=== PATIENT | female | born 1975 | race Caucasian/White ===

== ENCOUNTER 2018-05-28 12:06 | Emergency (ER) | payer BC ==
--- NOTE | 2018-05-28 12:16 | EDM.PDOC ---
ED HPI GENERAL MEDICAL PROBLEM - General Chief Complaint: Chest Pain Stated Complaint: CHEST PAIN Time Seen by Provider: 05/28/18 12:13 Source of Information: Reports: Patient, RN Notes Reviewed - History of Present Illness INITIAL COMMENTS - FREE TEXT/NARRATIVE: 42-year-old female that started having mild chest discomfort asked her today, worse last evening and then becoming more severe this morning with radiation to her back. Those as though there is a pressure sensation in her chest, especially with deep breathing. There also is a sharp shooting component that goes into her back. She has not been coughing. No fever or chills. She does feel mildly short of breath with this. No radiation to the shoulder or arm at this time. She is not diabetic and she does not smoke. She states there is strong family history for heart disease in her family. Left Chest Pain Score (Numeric/FACES): 8 - Related Data Allergies Allergy/AdvReac Type Severity Reaction Status Date / Time No Known Allergies Allergy Verified 04/24/15 15:02 Home Meds: Home Meds Zolpidem [Ambien] 10 mg PO BEDTIME PRN 04/24/15 [History] ALPRAZolam [Alprazolam] 0.25 mg PO TID PRN 05/28/18 [History] FLUoxetine HCl [Prozac] 20 mg PO DAILY 05/28/18 [History] LORazepam [Ativan] 0.5 mg PO Q12HR #10 tablet 05/28/18 [Rx] Potassium Chloride 20 meq PO DAILY 05/28/18 [History] buPROPion HCl [Wellbutrin Xl] 150 mg PO DAILY 05/28/18 [History] Past Medical History Other [employer] History: Abnormal pap, with LEEPX3 ED ROS GENERAL - Review of Systems Review Of Systems: See Below Constitutional: Denies: Fever, Chills, Diaphoresis HEENT: Denies: Sinus Problem, Throat Pain Respiratory: Reports: Shortness of Breath (Mild), Pleuritic Chest Pain. Denies : Cough (Mild) Cardiovascular: Reports: Chest Pain GI/Abdominal: Denies: Abdominal Pain (Left anterior chest), Nausea, Vomiting Musculoskeletal: Denies: Neck Pain, Shoulder Pain, Arm Pain Skin: Reports: No Symptoms Neurological: Reports: Numbness (She did have some numbness of the left arm, that is gone) ED EXAM, GENERAL - Physical Exam Exam: See Below General Appearance: Alert, Anxious, Mild Distress Eye Exam: Bilateral Eye: PERRL Throat/Mouth: Normal Inspection Head: Atraumatic Neck: Supple, Full Range of Motion. No: Lymphadenopathy (L), Lymphadenopathy (R ) Respiratory/Chest: No Respiratory Distress, Lungs Clear, Normal Breath Sounds, Chest Non-Tender Cardiovascular: Regular Rate, Rhythm GI/Abdominal: Soft, Non-Tender Back Exam: No: CVA Tenderness (L), CVA Tenderness (R) Extremities: No: Pedal Edema, Leg Pain, Increased Warmth, Redness Neurological: Alert, Oriented, No Motor/Sensory Deficits Skin Exam: Warm, Dry, Normal Color EKG INTERPRETATION EKG Date: 05/28/18 Rhythm: NSR [place]: Normal P-Wave: Present QRS: Normal ST-T: Other (There are T-wave inversions inferior leads and also V3, 4, [address] depression in V3, 4, 5 and 6.) Course - Vital Signs Last Recorded V/S: Last Vital Signs Temp 98.2 F 05/28/18 13:25 Pulse 80 05/28/18 13:25 Resp 10 L 05/28/18 13:25 BP 117/77 05/28/18 13:25 Pulse Ox 99 05/28/18 13:25 - Orders/Labs/Meds Orders: Active Orders 24 hr Category Date Time Status EKG Documentation Completion [RC] ASDIRECTED Care 05/28/18 12:17 Active Peripheral IV Care [RC] . DIRECTED Care 05/28/18 12:31 Active Chest 1V Frontal [CR] Stat Exams 05/28/18 12:30 Taken Peripheral IV Insertion Adult [OM.PC] Stat Oth 05/28/18 12:31 Ordered EKG 12 Lead [EK] Stat Ther 05/28/18 12:17 Ordered Labs: Laboratory Tests 05/28/18 05/28/18 05/28/18 Range/Units 12:17 12:17 12:17 WBC 9.12 (3.98-10.04) K/mm3 RBC 5.27 H (3.98-5.22) M/mm3 Hgb 14.8 (11.2-15.7) gm/L Hct 42.9 (34.1-44.9) % MCV 81.4 (79.4-94.8) fl MCH 28.1 (25.6-32.2) pg MCHC 34.5 (32.2-35.5) g/dl RDW Std Deviation 41.8 (36.4-46.3) fL Plt Count 379 H (182-369) K/mm3 MPV 10.1 (9.4-12.3) fl Neut % (Auto) 68.3 (34.0-71.1) % Lymph % (Auto) 21.6 (19.3-51.7) % [place] % (Auto) 5.4 (4.7-12.5) % Eos % (Auto) 3.1 (0.7-5.8) Baso % (Auto) 1.4 H (0.1-1.2) % Neut # (Auto) 6.23 H (1.56-6.13) K/mm3 Lymph # (Auto) 1.97 (1.18-3.74) K/mm3 [place] # (Auto) 0.49 H (0.24-0.36) K/mm3 Eos # (Auto) 0.28 (0.04-0.36) K/mm3 Baso # (Auto) 0.13 H (0.01-0.08) K/mm3 D-Dimer, Quantitative 0.74 H (0.19-0.50) mg/L Sodium 137 (136-145) mEq/L Potassium 3.4 L (3.5-5.1) mEq/L Chloride 99 (98-107) mEq/L Carbon Dioxide 28 (21-32) mEq/L Anion Gap 13.4 (5-15) BUN 10 (7-18) mg/dL Creatinine 1.4 H (0.55-1.02) mg/dL Est Cr Clr Drug Dosing 47.74 mL/min Estimated GFR (MDRD) 41 (>60) mL/min BUN/Creatinine Ratio 7.1 L (14-18) Glucose 93 (74-106) mg/dL Calcium 9.0 (8.5-10.1) mg/dL Total Bilirubin 0.4 (0.2-1.0) mg/dL AST 22 (15-37) U/L ALT 17 (14-59) U/L Alkaline Phosphatase 51 (46-116) U/L Troponin I < 0.017 (0.00-0.056) ng/mL Total Protein 7.3 (6.4-8.2) g/dl Albumin 3.9 (3.4-5.0) g/dl Globulin 3.4 gm/dL Albumin/Globulin Ratio 1.2 (1-2) Meds: Medications Discontinued Medications Generic Name Dose Route Start Last Admin Trade Name Freq PRN Reason Stop Dose Admin Hydromorphone HCl 0.5 mg 05/28/18 13:17 05/28/18 13:22 Dilaudid IVPUSH 05/28/18 13:18 0.5 mg ONETIME ONE Administration Hydromorphone HCl 0.5 mg 05/28/18 15:36 05/28/18 15:41 Dilaudid IVPUSH 05/28/18 15:37 0.5 mg ONETIME ONE Administration Sodium Chloride 100 mls @ 75 mls/hr 05/28/18 14:00 05/28/18 14:01 Normal Saline IV 75 mls/hr ASDIRECTED SHILOH Administration Iopamidol 100 ml 05/28/18 13:48 05/28/18 14:01 Isovue-370 (76%) IVPUSH 05/28/18 13:49 70 ml ONETIME ONE Administration Lorazepam 0.5 mg 05/28/18 15:36 05/28/18 15:42 Ativan PO 05/28/18 15:37 0.5 mg ONETIME ONE Administration Sodium Chloride 10 ml 05/28/18 12:30 05/28/18 12:35 Saline Flush FLUSH 10 ml ASDIRECTED PRN Administration Keep Vein Open Sodium Chloride 10 ml 05/28/18 13:48 05/28/18 14:01 Saline Flush FLUSH 10 ml ONETIME PRN Administration IV FLUSH - Re-Assessments/Exams Free Text/Narrative Re-Assessment/Exam: 05/28/18 12:32 Patient does have T-wave inversions inferior anterior and lateral leads with some mild ST depression V4 5 and 6. When I suggested giving aspirin she states she can "cannot have anti-inflammatories" because "her kidneys are weak". We'll hold off on aspirin for now. 05/28/18 13:35. D-dimer did come back mildly elevated. Her pain became worse requiring IV Dilaudid to obtain at least some relief. His anxiety level also noted to be quite high. Based on all of that CT pulmonary angiogram has been ordered. 16:40. CT pulmonary angiogram was normal. Troponin also was normal as well as other labs. Chest x-ray did look good. Discharge instructions as documented. Departure - Departure Time of Disposition: 16:36 Disposition: Home, Self-Care 01 Condition: Fair Clinical Impression: Atypical chest pain, Pleurisy Prescriptions: LORazepam [Ativan] 0.5 mg PO Q12HR #10 tablet Instructions: Pleurisy, [id number] Referrals: Hanny Chilel PA-C [Primary Care Provider] - Forms: ED Department Discharge Additional Instructions: Ativan 0.5 mg twice daily for muscle and nerve relaxation, Tylenol 2-3 times daily for discomfort. You may also alternate ice and heat as needed for further chest or back discomfort. The symptoms of discomfort should gradually resolve over the next 2-4 days. Follow-up with your regular medical provider early next week for recheck, call [phone] for appointment. Return to ED as needed if symptoms worsening in any way. - My Orders Last 24 Hours: My Active Orders 05/28/18 12:17 EKG Documentation Completion [RC] ASDIRECTED EKG 12 Lead [EK] Stat 05/28/18 12:30 Chest 1V Frontal [CR] Stat 05/28/18 12:31 Peripheral IV Care [RC] . DIRECTED Peripheral IV Insertion Adult [OM.PC] Stat - Assessment/Plan Last 24 Hours: My Active Orders 05/28/18 12:17 EKG Documentation Completion [RC] ASDIRECTED EKG 12 Lead [EK] Stat 05/28/18 12:30 Chest 1V Frontal [CR] Stat 18 12:31 Peripheral IV Care [RC] . DIRECTED Peripheral IV Insertion Adult [OM.PC] Stat
[2018-05-28] MEDS ORDERED: Sodium Chloride 0.9% 10 ML Syringe FLUSH PRN ×2 (12:30→13:48)
[2018-05-28] MEDS ORDERED: HYDROmorphone 0.5 MG/0.5 ML SYRINGE IVPUSH ONE ×2 (13:17→15:36)
[2018-05-28 13:27] VITALS: BP 117/77
[2018-05-28] MEDS ORDERED: Iopamidol 755 Mg/ML 100 ML Bottle IVPUSH ONE (13:48)
[2018-05-28] MEDS ORDERED: Sodium Chloride 0.9% 100 ML IV SCH (14:00)
--- NOTE | 2018-05-28 14:36 | CT ---
CT chest Technique: Multiple axial sections through the chest were obtained. Intravenous contrast was utilized. Study has been performed as a pulmonary angiogram protocol. Findings: Pulmonary arteries are well-opacified. No filling defects are seen to indicate pulmonary embolism. Mediastinum and hilar regions show no adenopathy or mass. No pericardial thickening is seen. Moderately large hiatal hernia is seen. 5 low density lesions are seen within the right and left lobes of the liver. These are felt compatible with incidental cysts. Largest cyst measures approximately 1.2 cm. Other visualized upper abdominal structures are within normal limits. Small pleural-based nodule is seen within the right middle lobe measuring 5 mm which most likely represents scarring. Lungs are clear with no acute parenchymal change. No pleural effusions are seen. Bone window settings were reviewed which shows no discrete osseous abnormality. No hilar adenopathy or mediastinal adenopathy is seen. No axillary adenopathy is seen. Impression: 1. No findings of pulmonary embolism. 2. 5 small cysts within the liver. Moderately large hiatal hernia. 3. Nothing acute is seen on CT study of the chest. Diagnostic code #2
[2018-05-28] MEDS ORDERED: LORazepam 0.5 MG Tab PO ONE (15:36)
--- NOTE | 2018-05-29 09:01 | CR ---
Chest: Portable view of the chest was obtained. Comparison: No prior chest x-ray. Heart size and mediastinum are normal. Lungs are clear. Bony structures are within normal limits. Impression: 1. Nothing acute is seen on portable chest x-ray. Diagnostic code #1
== END 2018-05-28 17:00 | disposition home or self-care (01) ==
LOC: JD.ED 12:06
DX: R07.89 Other chest pain (principal); R09.1 Pleurisy; Z79.899 Other long term (current) drug therapy
CPT/HCPCS: 36415; 71045; 71275; 80053; 84484; 85025; 85379; 93005; 96374; 96376; 99285; A9270; J1170; J7030; J7050; Q9967

== ENCOUNTER 2018-06-17 06:57 | Day surgery (SDC) | payer BC ==
[~2018-06-17 06:57] MED LIST: Lactated Ringers 1,000 ML IV SCH; Lidocaine 1% 4 ML ONE; Lidocaine 1%/Sod Bicarbonate in NS 8.4% 1 ML Syringe IDERM PRN; Propofol 200 MG/20 ML SDV ONE; Sodium Chloride 0.9% 10 ML Syringe FLUSH PRN; fentaNYL 100 MCG/2 ML SDV ONE
--- NOTE | 2018-06-17 08:18 | PCM.PREANE ---
Preanesthetic Assessment - Anesthesia/Transfusion/Family Hx Anesthesia History: Prior Anesthesia Without Reaction Family History of Anesthesia Reaction: No Transfusion History: No Prior Transfusion(s) Intubation History: Unknown - Review of Systems General: No Symptoms, Fatigue Pulmonary: No Symptoms Cardiovascular: No Symptoms Gastrointestinal: No Symptoms (GERD), Abdominal Pain, Constipation Neurological: No Symptoms, Headache (Migraines) Other: Reports: None (STAGE III kidney disease chronic), Easy Bruising, Sinus Problem (seasonal allergies), Depression, Anxiety - Physical Assessment NPO Status Date: 06/16/18 NPO Status Time: 21:00 Pulse: 82 O2 Sat by Pulse Oximetry: 97 Respiratory Rate: 16 Blood Pressure: 100/77 Temperature: 36.4 C Vital Signs: Last Vital Signs Temp 36.4 C 06/17/18 07:19 Pulse 82 06/17/18 07:19 Resp 16 06/17/18 07:19 BP 100/77 06/17/18 07:19 Pulse Ox 97 06/17/18 07:19 Height: 1.73 m Weight: 57.1 kg ASA Class: 2 Mental Status: Alert & Oriented x3 Airway Class: Mallampati = 2 Dentition: Reports: Dentures Thyro-Mental Finger Breadths: 3 Mouth Opening Finger Breadths: 3 ROM/Head Extension: Full Lungs: Clear to Auscultation, Normal Respiratory Effort Cardiovascular: Regular Rate, Regular Rhythm, No Murmurs - Lab Values: Lab values reviewed and noted and within acceptable ranges to proceed with scheduled procedure. - Imaging/EKG Impressions: EKG: SR rate= 75, Twave inversion noted along with ST segment depression V3-V6. CXR: negative Cardiolyte Stess test: negative - Allergies Allergies/Adverse Reactions: Allergies Allergy/AdvReac Type Severity Reaction Status Date / Time No Known Allergies Allergy Verified 06/17/18 08:10 - Anesthesia Plan Pre-Op Medication Ordered: None - Acknowledgements Anesthesia Type Planned: MAC Pt an Appropriate Candidate for the Planned Anesthesia: Yes Alternatives and Risks of Anesthesia Discussed w Pt/Guardian: Yes Pt/Guardian Understands and Agrees with Anesthesia Plan: Yes PreAnesthesia Questionnaire Cardiovascular History: Reports: Heart Murmur Genitourinary History: Reports: Other (See Below) Other Genitourinary History: low functioning kidney Other OB/BYN History: Abnormal pap, with LEEPX3 Psychiatric History: Reports: Anxiety, Depression - HOME MEDS Home Medications: Home Meds Zolpidem [Ambien] 10 mg PO BEDTIME PRN 04/24/15 [History] ALPRAZolam [Alprazolam] 0.25 mg PO TID PRN 05/28/18 [History] FLUoxetine HCl [Prozac] 20 mg PO DAILY 05/28/18 [History] LORazepam [Ativan] 0.5 mg PO Q12HR #10 tablet 05/28/18 [Rx] Potassium Chloride 20 meq PO DAILY 05/28/18 [History] buPROPion HCl [Wellbutrin Xl] 150 mg PO DAILY 05/28/18 [History] - CURRENT (IN HOUSE) MEDS Current Meds: Current Medications Lactated Ringer's (Ringers, Lactated) 1,000 mls @ 125 mls/hr IV ASDIRECTED SHILOH Stop: 06/17/18 23:00 Lidocaine/Sodium Bicarbonate (Buffered Lidocaine 1% In Ns 8.4%) 0.25 ml IDERM ONETIME PRN PRN Reason: Prior to IV Start Stop: 06/17/18 18:00 Sodium Chloride (Saline Flush) 10 ml FLUSH ASDIRECTED PRN PRN Reason: Keep Vein Open Stop: 06/17/18 18:00 Discontinued Medications Fentanyl (Sublimaze) Confirm Administered Dose 100 mcg .ROUTE .STK-MED ONE Stop: 06/17/18 06:53 Lidocaine HCl (Xylocaine-Mpf 1%) Confirm Administered Dose 4 mls @ as directed .ROUTE .STK-MED ONE Stop: 06/17/18 06:53 Propofol (Diprivan 20 Ml) Confirm Administered Dose 200 mg .ROUTE .STK-MED ONE Stop: 06/17/18 06:53
[2018-06-17] MEDS ORDERED: Lactated Ringers 1,000 ML ONE (09:15)
--- NOTE | 2018-06-17 09:58 | PCM48HPAN ---
Post Anesthesia Note - EVALUATION WITHIN 48HRS OF ANESTHETIC Vital Signs in Normal Range: Yes Patient Participated in Evaluation: Yes Respiratory Function Stable: Yes Airway Patent: Yes Cardiovascular Function Stable: Yes Hydration Status Stable: Yes Pain Control Satisfactory: Yes Nausea and Vomiting Control Satisfactory: Yes Mental Status Recovered: Yes Pulse Rate: 82 SaO2: 95 Resp Rate: 16 Temperature: 36.4 C Blood Pressure: 100/77 Pulse Rate: 69
--- NOTE | 2018-06-17 09:58 | PCM.OPNOTE ---
- General Post-Op/Procedure Note Date of Surgery/Procedure: 06/17/18 Operative Procedure(s): esophagogastroduodenoscopy with biopsy Findings: Normal EGD Pre Op Diagnosis: chronic GERD Post-Op Diagnosis: chronic GERD Anesthesia Technique: MAC Primary Surgeon: Brannon Fernandes Anesthesia Provider: Janie Arreola Pathology: 1) gastric antrum 2) GE junction EBL in mLs: 1 Complications: None Condition: Good Free Text/Narrative:: Indications for surgery: The patient is a 42 yo female, with a history of chronic GERD. The patient was consented for esophagogastroduodenoscopy with possible biopsy. Indications, risks, and benefits were discussed. Description of procedure: After surgical consent was verified, the patient was brought to the endoscopy suite. Anesthesia inducted monitored anesthesia care. A procedural time-out was performed to verify proper patient and proper procedure. Appropriate padding and straps were placed. A bite block was placed. An endoscope was inserted through the mouth and advanced down the esohagus, into the stomach, through the pylorus, and into the 2nd portion of the duodenum. The scope was then withdrawn into the stomach. Retroflexed views of the GE junction were obtained. The scope was withdrawn through the GE junction, and the esophagus was inspected. All mucosal surfaces appeared normal. Biopsy of the gastric antrum was performed, which appeared endoscopically normal. Biopsy of the GE junction was also performed, which appeared endoscopically normal. The patient tolerated the procedure well, was brought out of anesthesia, and transported to the PACU in stable condition. I was present and scrubbed for the entirety of the case. Brannon Fernandes M.D., F.A.C.S. General Surgery Pager: [phone]
[2018-06-17 11:25] VITALS: BP 115/73
== END 2018-06-17 11:10 | disposition home or self-care (01) ==
LOC: JD.SDS 06:57
PROVIDERS: ATTEND Student in an Organized Health Care Education/Training Program
DX: K21.9 Gastro-esophageal reflux disease without esophagitis (principal); K20.9 Esophagitis, unspecified; F32.9 Major depressive disorder, single episode, unspecified; F41.9 Anxiety disorder, unspecified; G47.00 Insomnia, unspecified; E87.6 Hypokalemia; J30.2 Other seasonal allergic rhinitis; Z79.899 Other long term (current) drug therapy
CPT/HCPCS: 43239; J2704; J3010; J7120; J2001